=== PATIENT | female | born 1980 | race Caucasian/White ===

== ENCOUNTER 2018-09-06 18:55 | Emergency (ER) | payer OTHER ==
[~2018-09-06] VITALS: Ht 149.9 cm; Wt 86.2 kg
--- OUTSIDE RECORDS SUMMARY | ~2018-09-06 | XMS | Clinical Summary ---
Demographics + + + | Address | [address] | | | [place] [address] | + + + | Home Phone | | + + + | Preferred Language | Unknown | + + + | Marital Status | Single | + + + | Protestant Affiliation | Unknown | + + + | Race | Unknown | + + + | Ethnic Group | Unknown | + + + Author + + + | Author | [facility] | | | and [place] | + + + | Organization | [facility] | | | and [place] | + + + | Address | Unknown | + + + | Phone | Unavailable | + + + Support + + +---------+ + | Name | Relationship | Address | Phone | + + +---------+ + | Efra España | ECON | Unknown | | + + +---------+ + | Reny Godfrey | ECON | Unknown | | + + +---------+ + Care Team Providers + +------+ + | Care Parquet Floor Layer'S Helper Name | Role | Phone | + +------+ + PP | Unavailable | + +------+ + Allergies + + + +--------+ + | Active Allergy | Reactions | Severity | Noted | Comments | | | | | Date | | + + + +--------+ + | Aspirin-Acetaminophe | | | | | | n-Caffeine | | | | | + + + +--------+ + | Doxycycline | | | | | + + + +--------+ + | Etodolac | | | | | + + + +--------+ + | Fluoxetine Hcl | | | | | + + + +--------+ + | Tramadol | | | | | + + + +--------+ + Current Medications + + +-------+---------+------+------+-------+ | Prescription | Sig. | Disp. | Refills | Star | End | Statu | | | | | | t | Date | s | | | | | | Date | | | + + +-------+---------+------+------+-------+ | levothyroxine | Take 137 mcg by | | | 02/25 | | Activ | | (SYNTHROID) 137 MCG | mouth Daily. | | | 10/14 | | e | | tablet | | | | 12 | | | + + +-------+---------+------+------+-------+ | sertraline | 1 06/28 tablets by | | | 02/25 | | Activ | | (ZOLOFT) 100 mg | mouth once daily | | | 10/14 | | e | | tablet | | | | 12 | | | + + +-------+---------+------+------+-------+ | caffeine (RA STAY | Take 100 mg by mouth | | | 02/25 | | Activ | | AWAKE) 100 MG TABS | Daily as needed. | | | 10/14 | | e | | | | | | 12 | | | + + +-------+---------+------+------+-------+ | ibuprofen | Take 100 mg by mouth | | | 02/25 | | Activ | | (ADVIL,MOTRIN) 100 | Daily. | | | 10/14 | | e | | MG tablet | | | | 12 | | | + + +-------+---------+------+------+-------+ Active Problems + + + | Problem | Noted Date | + + + | PALPITATIONS | | + + + | SYNCOPE AND COLLAPSE | | + + + | OTHER CHEST PAIN | | + + + Social History + +-------+ +--------+------+ | Tobacco Use | Types | Packs/Day | Years | Date | | | | | Used | | + +-------+ +--------+------+ | Never Assessed | | | | | + +-------+ +--------+------+ + + + | Sex Assigned at | Date Recorded | | | | + + + | Not on file | | + + + Last Filed Vital Signs + + + + | Vital Sign | Reading | Time Taken | + + + + | Blood Pressure | 126/84 | 05/06/2011 0000 PST | + + + + | Pulse | - | - | + + + + | Temperature | - | - | + + + + | Respiratory Rate | - | - | + + + + | Oxygen Saturation | - | - | + + + + | Inhaled Oxygen | - | - | | Concentration | | | + + + + | Weight | 73.5 kg (162 lb) | 05/06/2011 0000 PST | + + + + | Height | 149.9 cm (4' 11") | 03/15/2011 0000 PDT | + + + + | Body Mass Index | 32.72 | 05/06/2011 0000 PST | + + + + Plan of Treatment + + + + + | Health Maintenance | Due Date | Last Done | Comments | + + + + + | Vaccine: | | | | | Dtap/Tdap/Td (1 - | 8 | | | | Tdap) | | | | + + + + + | Cervical Cancer | | | | | Screening (Pap) | 9 | | | + + + + + | Vaccine: Influenza | | | | | (#1) | 8 | | | + + + + + Results Not on filefrom Last 3 Months
--- OUTSIDE RECORDS SUMMARY | ~2018-09-06 | XMS | Clinical Summary ---
Demographics + + + | Address | [address] | | | [place] [address] | + + + | Home Phone | | + + + | Preferred Language | Unknown | + + + | Marital Status | Single | + + + | Hoahaoism Affiliation | Unknown | + + + | Race | Unknown | + + + | Ethnic Group | Unknown | + + + Author + + + | Author | [facility] | | | and [place] | + + + | Organization | [facility] | | | and [place] | [...] Team Providers + +------+ + | Care Financial Services Sales Representative Name | Role | Phone | + [...]
[2018-09-06] MEDS ORDERED: LEVOTHYROXINE200 MCG PO (19:28)
[2018-09-06] MEDS ORDERED: PROMETHAZINE HC25 M1 PO (19:28)
[2018-09-06] MEDS ORDERED: METFORMIN HCL500 M1 PO (19:29)
[2018-09-06] MEDS ORDERED: OMEPRAZOLE20 MG PO (19:29)
[2018-09-06] MEDS ORDERED: LO-DOSE ASPIRIN81 M1 PO (20:21)
[2018-09-06] MEDS ORDERED: NAPROXEN500 MG PO (23:19)
== END 2018-09-06 23:35 | disposition home or self-care (01) ==
LOC: ED 18:55
DX: N28.1 Cyst of kidney, acquired (principal); E11.9 Type 2 diabetes mellitus without complications; E03.9 Hypothyroidism, unspecified; Z88.8 Allergy status to other drugs, medicaments and biological substances; Z88.1 Allergy status to other antibiotic agents; Z88.5 Allergy status to narcotic agent; Z79.899 Other long term (current) drug therapy; Z79.84 Long term (current) use of oral hypoglycemic drugs; Z79.82 Long term (current) use of aspirin
CPT/HCPCS: 74177; 80053; 81001; 83690; 84703; 85025; 99284-25; Q9967

== ENCOUNTER 2019-03-04 18:39 | Emergency (ER) | payer OTHER ==
[~2019-03-04] VITALS: Ht 149.9 cm; Wt 73.5 kg
[~2019-03-04 18:39] MED LIST: LEVOTHYROXINE200 MCG PO; LO-DOSE ASPIRIN81 M1 PO; METFORMIN HCL500 M1 PO; NAPROXEN500 MG PO; OMEPRAZOLE20 MG PO; PROMETHAZINE HC25 M1 PO
[2019-03-04] MEDS ORDERED: ZOFRAN4 MG PO (20:38)
[2019-03-04] MEDS ORDERED: PROMETHAZINE HC25 M1 PO (20:38)
== END 2019-03-04 21:15 | disposition home or self-care (01) ==
LOC: ED 18:39
DX: N99.89 Other postprocedural complications and disorders of genitourinary system (principal); R11.2 Nausea with vomiting, unspecified; E11.9 Type 2 diabetes mellitus without complications; Z87.891 Personal history of nicotine dependence; Z90.49 Acquired absence of other specified parts of digestive tract; Z90.710 Acquired absence of both cervix and uterus; Z88.6 Allergy status to analgesic agent; Z88.8 Allergy status to other drugs, medicaments and biological substances; Z88.1 Allergy status to other antibiotic agents
CPT/HCPCS: 80053; 81001; 83735; 85025; 96361; 96374; 96375; 99284-25; J1170; J2405; J7040

== ENCOUNTER 2019-03-09 16:11 | Emergency (ER) | payer OTHER ==
[~2019-03-09] VITALS: Ht 149.9 cm; Wt 73.5 kg
[~2019-03-09 16:11] MED LIST changes: +ZOFRAN4 MG PO
--- OUTSIDE RECORDS SUMMARY | 2019-03-09 16:14 | XMS ---
PreManage Notification: CARMELINA REBOLLAR Security Long Filler Cigar Roller Machine Events No recent Security Events currently on file CRITERIA MET - [facility] [place] - 2 Visits in 30 Days CARE PROVIDERS There are no care providers on record at this time. Dahlia has no Care Guidelines for this patient. [place] VISIT COUNT (12 MO[address] 3 [facility] TOTAL 3 NOTE: Visits indicate total known visits. ED/C VISIT TRACKING (12 MO.) 03/09/2019 16:12 [facility] [place] TYPE: Emergency COMPLAINT: - POST OP PAIN 03/04/2019 18:39 [facility] [place] TYPE: Emergency COMPLAINT: - POST OP PROBLEM/ VOMITING DIAGNOSES: - Nausea - Other postprocedural complications and disorders of genitourinary system - Allergy status to other antibiotic agents status - Allergy status to analgesic agent status - Nausea with vomiting, unspecified - Acquired absence of other specified parts of digestive tract - Personal history of nicotine dependence - Type 2 diabetes mellitus without complications - Allergy status to other drugs, medicaments and biological substances status - Acquired absence of both cervix and uterus 09/06/2018 18:56 [facility] [place] TYPE: Emergency COMPLAINT: - FLANK PAIN/URINE PROBLEM DIAGNOSES: - Other correction (current) drug therapy - Cyst of kidney, acquired - Allergy status to narcotic agent status - Hypothyroidism, unspecified - Type 2 diabetes mellitus without complications - Allergy status to other drugs, medicaments and biological substances status - Allergy status to other antibiotic agents status - intermediate (current) use of oral hypoglycemic drugs - Left lower quadrant pain - 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
[2019-03-09] MEDS ORDERED: PERCOCET 5-3251 EACH PO (16:32)
== END 2019-03-09 17:16 | disposition home or self-care (01) ==
LOC: ED 16:11
DX: N99.89 Other postprocedural complications and disorders of genitourinary system (principal); G89.18 Other acute postprocedural pain; E11.9 Type 2 diabetes mellitus without complications; E03.9 Hypothyroidism, unspecified; Z90.710 Acquired absence of both cervix and uterus; Z90.49 Acquired absence of other specified parts of digestive tract; Z88.1 Allergy status to other antibiotic agents; Z88.8 Allergy status to other drugs, medicaments and biological substances; Z88.6 Allergy status to analgesic agent; Z79.899 Other long term (current) drug therapy
CPT/HCPCS: 96372; 99283; J1170; J2550

== ENCOUNTER 2019-03-20 10:47 | Emergency (ER) | payer OTHER ==
[~2019-03-20] VITALS: Ht 149.9 cm; Wt 73.5 kg
[~2019-03-20 10:47] MED LIST changes: +PERCOCET 5-3251 EACH PO
--- OUTSIDE RECORDS SUMMARY | 2019-03-20 10:50 | XMS ---
PreManage Notification: CARMELINA REBOLLAR Security Cardiovascular Radiologic Technologist Events No recent Security Events currently on file CRITERIA MET - [facility] - Has Care Guidelines - PDMP - [facility] - 2 Visits in 30 Days [facility] Duffy PHONE: [phone] Guidelines Source: [facility] [place] Guidelines Date: 03/12/2019 Care Coordination: Receives mental health services with [facility].\T\nbsp; Please contact [facility] for mental health concerns.\T\nbsp; Adriane/[place]:\T\nbsp; \T\nbsp; Greg:\T\nbsp; [phone]. [facility] NOTE: Visits indicate total known visits. ED/UCC VISIT TRACKING (12 MO.) 03/20/2019 10:48 [facility] [place] TYPE: Emergency COMPLAINT: - FLANK PAIN, POST OP 03/09/2019 16:12 [facility] [place] TYPE: Emergency COMPLAINT: - POST OP PAIN DIAGNOSES: - Allergy status to other antibiotic agents status - Hypothyroidism, unspecified - Type 2 diabetes mellitus without complications - Other supervisor intermediates (current) drug therapy - Acquired absence of other specified parts of digestive tract - Other postprocedural complications and disorders of genitourinary system - Allergy status to analgesic agent status - Other acute postprocedural pain - Allergy status to other drugs, medicaments and biological substances status - Acquired absence of both cervix and uterus 03/04/2019 18:39 [facility] [place] TYPE: Emergency [...] - FLANK PAIN/URINE PROBLEM DIAGNOSES: - Other supervisor intermediates (current) drug therapy - Cyst of kidney, acquired - Allergy status to narcotic agent status - Hypothyroidism, unspecified - Type 2 diabetes mellitus without complications - Allergy status to other drugs, medicaments and biological substances status - Allergy status to other antibiotic agents status - 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
[2019-03-20] MEDS ORDERED: OXYCODONE HCL5 MG PO (11:06)
[2019-03-20] MEDS ORDERED: PROMETHAZINE HC25 M1 PO (12:03)
== END 2019-03-20 12:11 | disposition home or self-care (01) ==
LOC: ED 10:47
DX: G89.18 Other acute postprocedural pain (principal); R10.9 Unspecified abdominal pain; E11.9 Type 2 diabetes mellitus without complications; E03.9 Hypothyroidism, unspecified; F17.200 Nicotine dependence, unspecified, uncomplicated; Z90.49 Acquired absence of other specified parts of digestive tract; Z90.710 Acquired absence of both cervix and uterus; Z88.6 Allergy status to analgesic agent; Z88.8 Allergy status to other drugs, medicaments and biological substances; Z79.899 Other long term (current) drug therapy
CPT/HCPCS: 81001; 99283